=== PATIENT | female | born 1985 ===

== ENCOUNTER 2018-07-09 16:55 | Emergency (ER) | payer MEDICAID ==
[~2018-07-09] VITALS: Ht 170.2 cm; Wt 77.0 kg
[2018-07-09 17:03] VITALS: BP 101/65
[2018-07-09] MEDS ORDERED: LIDOCAINE 1%-EPI 1:100K, 20ML ONE (17:23)
[2018-07-09] MEDS ORDERED: LIDOCAINE 1%-EPI 1:100K, 20ML SQ ONE (17:30)
== END 2018-07-09 17:26 | disposition home or self-care (01) ==
LOC: ED 17:20
DX: L02.01 Cutaneous abscess of face (principal); L02.31 Cutaneous abscess of buttock; F17.200 Nicotine dependence, unspecified, uncomplicated
CPT/HCPCS: 10061; 99284

== ENCOUNTER 2018-07-11 13:41 | Emergency (ER) | payer MEDICAID ==
[~2018-07-11] VITALS: Ht 170.2 cm; Wt 76.9 kg
[2018-07-11 13:47] VITALS: BP 102/58
== END 2018-07-11 14:21 | disposition home or self-care (01) ==
LOC: ED 14:10
DX: L02.811 Cutaneous abscess of head [any part, except face] (principal); L02.416 Cutaneous abscess of left lower limb; L02.415 Cutaneous abscess of right lower limb
CPT/HCPCS: 99283

== ENCOUNTER 2018-10-10 15:26 | Emergency (ER) | payer MEDICAID ==
[~2018-10-10] VITALS: Ht 170.2 cm; Wt 70.0 kg
[2018-10-10 15:30] VITALS: BP 106/61
== END 2018-10-10 15:57 | disposition home or self-care (01) ==
LOC: ED 15:51
DX: L03.115 Cellulitis of right lower limb (principal); L02.415 Cutaneous abscess of right lower limb
CPT/HCPCS: 99283

== ENCOUNTER 2018-10-20 13:59 | Emergency (ER) | payer MEDICAID ==
[~2018-10-20] VITALS: Ht 170.2 cm; Wt 71.8 kg
[2018-10-20 16:51] VITALS: BP 132/87
== END 2018-10-20 17:05 | disposition home or self-care (01) ==
LOC: ED 16:59
DX: K52.9 Noninfective gastroenteritis and colitis, unspecified (principal)
CPT/HCPCS: 36415; 74177; 80053; 81001; 83690; 84703; 85025; 96361; 96374; 96375; 99284; J1170; J2405; J7030; Q9967